=== PATIENT | female | born 2000 | race Caucasian/White ===

== ENCOUNTER 2022-08-23 17:33 | Emergency (ER) | payer OTHER ==
[~2022-08-23] VITALS: Ht 149.9 cm; Wt 46.3 kg
[2022-08-23 17:58] VITALS: BP 108/62
--- NOTE | 2022-08-23 19:02 | NUR ---
PT L EAR IRRIGATED, PT STATED SHE CAN HEAR AFTER IRRIGATED. FOREIGN BODIES CAME OUT.
[2022-08-23 19:05] VITALS: BP 108/62
== END 2022-08-23 19:05 | disposition home or self-care (01) ==
LOC: MED 17:33
DX: H61.22 Impacted cerumen, left ear (principal)
CPT/HCPCS: 99282